=== PATIENT | male | born 1970 | race Asian ===

== ENCOUNTER 2016-11-15 10:31 | Emergency (ER) | payer OTHER ==
--- NOTE | 2016-11-15 11:02 | EDPHY ---
H & P Stated Complaint: Fever, "not feeling well", kidney transplant 12 weeks ago. Time Seen by Provider: 11/15/16 10:31 HPI/ROS: CHIEF COMPLAINT: fever, diarrhea, recent kidney transplant HISTORY OF PRESENT ILLNESS: 46-year-old male who recently had a right kidney transplant at [facility] 4 months ago presents to the emergency department by EMS complaining of a 2 day history of subjective fevers, weakness and diarrhea that started yesterday. Patient denies recent cough or cold, he denies abdominal pain at this time though reports last night he had sharp diffuse abdominal pain for about an hour with rigors, no nausea or vomiting. He denies chest pain. He does report shortness of breath on exertion. Patient reports burning with urination over the last 2 days. Patient reports 4 episodes of diarrhea yesterday and 4 today. Reports that is liquid yellow, denies blood in his urine or stool. REVIEW OF SYSTEMS: A comprehensive 10 point review of systems is otherwise negative aside from elements mentioned in the history of present illness. Source: Patient, RN/MD, EMS Exam Limitations: Language barrier - Medical/Surgical History Hx Diabetes: No Other PMH: kidney transplant 12 weeks ago. - Social History Smoking Status: Former smoker - Physical Exam Exam: Physical Exam Gen: Alert and Oriented, pale HEENT: PERRL, dry mucous membranes NECK: no meningismus CV: Tachycardic rate and regular rhythm PULM: CTAB, no wheezes ABDOMEN: soft, non tender to palpation, BS present BACK: No CVA tenderness NEURO: Neurologically grossly intact EXTREMITIES: normal appearing SKIN: no rash or break in skin on exposed skin, renal transplant surgical incision healed with no surrounding erythema PSYCH: answers questions appropriately. Constitutional: Initial Vital Signs Temperature (C) 36.9 C 11/15/16 10:33 Heart Rate 114 H 11/15/16 10:33 Respiratory Rate 20 11/15/16 10:33 Blood Pressure 83/53 L 11/15/16 10:33 O2 Sat (%) 95 11/15/16 10:33 O2 Delivery Mode Nasal Cannula O2 (L/minute) 3 Allergies/Adverse Reactions: No Known Allergies Allergy (Unverified 08/22/09 12:54) Medical Decision Making - Diagnostics EKG Interpretation: EKG shows sinus tachycardia, rate 97, normal axis, good R-wave progression, left ventricular hypertrophy. 3pm-EKG shows sinus tachycardia rate 145 Imaging: Chest x-ray independently reviewed by me- Impression: 1. Clear lungs. No pneumonia. 2. Resolved pericardial effusion since January 2016. Dictated By: Ventura Sanchez MD CT abdomen pelvis- Impression: 1. Bladder wall thickening and prominent right iliac fossa renal transplant with nonspecific perinephric stranding, suspicious for cystitis/pyelonephritis given the patient' s reported history of urosepsis. No perinephric abscess. 2. Multiple indeterminate soft tissue density masses in the kidneys, most likely related to hemorrhagic/proteinaceous cysts, but incompletely characterized on this unenhanced CT. If these have not been previously evaluated, ultrasound may be useful for further assessment. 3. Probable mild ileus. 4. Trace pleural effusions. 5. 1.6 cm pancreatic cyst. Follow up is recommended in one year per the [employer]. 6. Additional findings as above. Attention: This CT examination is specifically designed to evaluate patients who are clinically suspected of having acute obstructive uropathy. This examination does not use radiographic contrast , and as such, provides only a limited evaluation of the abdomen, pelvis and retroperitoneum. If there is further clinical suspicion for pathological conditions other than obstructive uropathy, a complete CT evaluation of the abdomen and pelvis utilizing intravenous, oral, and rectal contrast should be considered. Findings discussed with Henny Mcrae NP on 11/15/2016 at 1531 hours. Dictated By: Robin Durbin MD ED Course/Re-evaluation: 1130- Creat 5.7. Severe sepsis identified with hypotension, tachycardia[place] [address] and a creatinine of 5.7. Lactate 2.3. I have ordered 2 L normal saline. 1230-patients blood pressure improving, 103/67, heart rate is down to 103. Influenza is negative. 1330- I spoken with Dr. Leong at [facility] for transfer of this patient for urosepsis. The patient has been given cefepime, Dr. Leong is requesting 1 g of vancomycin as well. They are looking for a bed and will call back. 250pm patient has developed acute onset abdominal pain, and is tachycardic to 160. He is given 0.5 mg of Dilaudid IV. CT abdomen pelvis without contrast has been ordered, my supervising physician Dr. Santos has evaluated patient and agrees with this plan. EKG shows a sinus tachycardia. Repeat lactate 2.0 310pm-after IV pain medication the patient's heart rate is now 130, he has a temperature of 37.9degrees. He is given 650 mg of Tylenol p.o. I have spoken with Dr. Vernon with Hospital Medicine at [facility]. She accepts this patient. We will arrange for ground transport ground to [facility]. 330pm-report called by Dr. Durbin for CT abdomen pelvis showing perinephric stranding consistent with a pyelonephritis. There is an incidental finding of a 1.6 cm pancreatic cyst that he is recommending follow-up in 1 year. 4pm-[facility] here to transport patient to [facility]. - Data Points Laboratory Results: Laboratory Results 11/15/16 11:00 11/15/16 11:00 11/15/16 11/15/16 11/15/16 13:25 12:37 12:30 WBC RBC Hgb Hct MCV MCH MCHC RDW Plt Count MPV Neut % (Auto) Lymph % (Auto) [place] % (Auto) Eos % (Auto) Baso % (Auto) Nucleat RBC Rel Count Absolute Neuts (auto) Absolute Lymphs (auto) Absolute Monos (auto) Absolute Eos (auto) Absolute Basos (auto) Absolute Nucleated RBC Immature Gran % Immature Gran # VBG Lactic Acid 2.0 mmol/L (0.7-2.1) Sodium Potassium Chloride Carbon Dioxide Anion Gap BUN Creatinine Estimated GFR Glucose Calcium Total Bilirubin AST ALT Alkaline Phosphatase Total Protein Albumin Lipase Urine Color KRISS Urine Appearance MODERATELY TURBID Urine pH 5.0 (5.0-7.5) Ur Specific [place] 1.016 (1.002-1.030) Urine Protein 2+ H (NEGATIVE) Urine Ketones NEGATIVE (NEGATIVE) Urine Blood NEGATIVE (NEGATIVE) Urine Nitrate NEGATIVE (NEGATIVE) Urine Bilirubin NEGATIVE (NEGATIVE) Urine Urobilinogen NEGATIVE EU (0.2-1.0) Ur Leukocyte Esterase 3+ H (NEGATIVE) Urine RBC Not Reported Urine WBC 50-182 H /hpf (0-3) Ur Epithelial Cells TRACE /lpf (NONE-1+) Urine Bacteria 4+ H /hpf (NONE SEEN) Hyaline Casts 1-5 /lpf (0-1) Urine Mucus TRACE /lpf (NONE-1+) Ur Culture Indicated? INDICATED H (NI) Urine Glucose NEGATIVE (NEGATIVE) C. difficile Tox (PCR) POSITIVE H (NEGATIVE) Influenza Typ A,B (DFA) NEGATIVE FOR FLU (NEGATIVE) 11/15/16 11:00 WBC 15.75 H 10^3/uL (3.80-9.50) RBC 2.76 L 10^6/uL (4.40-6.38) Hgb 8.8 L g/dL (13.7-17.5) Hct 27.0 L % (40.0-51.0) MCV 97.8 fL (81.5-99.8) MCH 31.9 pg (27.9-34.1) MCHC 32.6 g/dL (32.4-36.7) RDW 14.0 % (11.5-15.2) Plt Count 167 10^3/uL (150-400) MPV 11.0 fL (8.7-11.7) Neut % (Auto) 93.9 H % (39.3-74.2) Lymph % (Auto) 1.4 L % (15.0-45.0) [place] % (Auto) 3.0 L % (4.5-13.0) Eos % (Auto) 0.0 L % (0.6-7.6) Baso % (Auto) 0.1 L % (0.3-1.7) Nucleat RBC Rel Count 0.0 % (0.0-0.2) Absolute Neuts (auto) 14.79 H 10^3/uL (1.70-6.50) Absolute Lymphs (auto) 0.22 L 10^3/uL (1.00-3.00) Absolute Monos (auto) 0.47 10^3/uL (0.30-0.80) Absolute Eos (auto) 0.00 L 10^3/uL (0.03-0.40) Absolute Basos (auto) 0.02 10^3/uL (0.02-0.10) Absolute Nucleated RBC 0.00 10^3/uL (0-0.01) Immature Gran % 1.6 H % (0.0-1.1) Immature Gran # 0.25 H 10^3/uL (0.00-0.10) VBG Lactic Acid 2.3 H mmol/L (0.7-2.1) Sodium 134 mEq/L (134-144) Potassium 4.7 mEq/L (3.5-5.2) Chloride 103 mEq/L (97-110) Carbon Dioxide 19 L mEq/l (22-31) Anion Gap 12 mEq/L (8-16) BUN 71 H mg/dL (7-23) Creatinine 5.7 H mg/dL (0.7-1.3) Estimated GFR 11 Glucose 146 H mg/dL (70-100) Calcium 8.6 mg/dL (8.5-10.4) Total Bilirubin 1.6 H mg/dL (0.1-1.4) AST 28 IU/L (17-59) ALT 39 IU/L (21-72) Alkaline Phosphatase 56 IU/L (38-126) Total Protein 6.0 L g/dL (6.3-8.2) Albumin 3.5 g/dL (3.5-5.0) Lipase 48.0 IU/L (23-300) Urine Color Urine Appearance Urine pH Ur Specific [place] Urine Protein Urine Ketones Urine Blood Urine Nitrate Urine Bilirubin Urine Urobilinogen Ur Leukocyte Esterase Urine RBC Urine WBC Ur Epithelial Cells Urine Bacteria Hyaline Casts Urine Mucus Ur Culture Indicated? Urine Glucose C. difficile Tox (PCR) Influenza Typ A,B (DFA) Medications Given: Discontinued Medications Acetaminophen (Tylenol 160mg/5ml Oral Liquid) 650 mg PO EDNOW ONE Stop: 11/15/16 15:21 Last Admin: 11/15/16 15:20 Dose: 650 mg Hydromorphone HCl (Dilaudid) 0.5 mg IVP EDNOW ONE Stop: 11/15/16 14:21 Last Admin: 11/15/16 14:20 Dose: 0.5 mg Sodium Chloride (Ns) 1,000 mls @ 0 mls/hr IV ONCE ONE PRN Reason: Wide Open Stop: 11/15/16 11:19 Last Admin: 11/15/16 11:33 Dose: 1,000 mls Sodium Chloride (Ns) 1,000 mls @ 0 mls/hr IV ONCE ONE PRN Reason: Wide Open Stop: 11/15/16 11:21 Last Admin: 11/15/16 11:36 Dose: 1,000 mls Cefepime HCl 1 gm/ Dextrose 50 mls @ 100 mls/hr IV EDNOW ONE PRN Reason: Protocol Stop: 11/15/16 11:59 Last Admin: 11/15/16 15:33 Dose: Not Given Cefepime HCl 1 gm/ Dextrose 50 mls @ 100 mls/hr IV EDNOW ONE PRN Reason: Protocol Stop: 11/15/16 12:01 Last Admin: 11/15/16 13:25 Dose: 50 mls Vancomycin/Sodium Chloride (Vancomycin 1 Gm (Premix)) 250 mls @ 250 mls/hr IV EDNOW ONE PRN Reason: Protocol Stop: 11/15/16 14:30 Last Admin: 11/15/16 14:10 Dose: 250 mls Sodium Chloride (Ns) 1,000 mls @ 0 mls/hr IV ONCE ONE PRN Reason: Wide Open Stop: 11/15/16 14:16 Last Admin: 11/15/16 14:15 Dose: 1,000 mls Sodium Chloride (Ns) 1,000 mls @ 0 mls/hr IV ONCE ONE PRN Reason: Wide Open Stop: 11/15/16 15:36 Last Admin: 11/15/16 15:54 Dose: 1,000 mls Departure - Departure Disposition: Acute Care Hospital Not [facility] Clinical Impression: Sepsis secondary to UTI, Acute kidney injury, C. difficile diarrhea Condition: Fair Referrals: [place] STATE,. [Primary Care Provider] - As per Instructions
[2016-11-15] MEDS ORDERED: NS 1,000 ML IV ONE ×4 (11:18→15:35)
[2016-11-15] MEDS ORDERED: CEFEPIME HCL 1 GM in D5W 50 ML IV ONE ×2 (11:30→11:32)
[2016-11-15 11:33] LABS: % IMMATURE GRANULYOCYTES 1.6 % (0.0-1.1); ABSOLUTE IMMATURE GRANULOCYTES 0.25 10^3/uL (0.00-0.10); ADD DIFF? NO; ADD MORPH? NO; ADD SCAN? NO; ATYPICAL LYMPHOCYTE FLAG 0 (0-99); FRAGMENT RBC FLAG 20 (0-99); HEMOGLOBIN 8.8 g/dL (13.7-17.5); LEFT SHIFT FLG 80 (0-99); LIPEMIA HEMOLYSIS FLAG 80 (0-99); MEAN CELL HEMOGLOBIN 31.9 pg (27.9-34.1); MEAN CELL HEMOGLOBIN CONCENTR. 32.6 g/dL (32.4-36.7); MEAN CELL VOLUME 97.8 fL (81.5-99.8); PLATELET CLUMPS FLAG 10 (0-99); PLATELET COUNT 167 10^3/uL (150-400); RED BLOOD CELL COUNT 2.76 10^6/uL (4.40-6.38)
--- NOTE | 2016-11-15 11:38 | DX ---
PA and Lateral Chest Indication: Pain. Fever. Comparison: January 18, 2016 Findings: The lungs are well aerated and clear. No airspace consolidation, edema, or effusion. The he art size is normal. No cardiomegaly, edema or effusion. The descending thoracic aorta is minimally to rtuous. Impression: 1. Clear lungs. No pneumonia. 2. Resolved pericardial effusion since January 2016.
--- NOTE | 2016-11-15 11:55 | CPEKG ---
Heart Rate: 97 RR Interval: 619 P-R Interval: 172 QRSD Interval: 98 QT Interval: 364 QTC Interval: 463 P [place]: 39 QRS [place]: 69 T Wave [place]: 39 EKG Severity - ABNORMAL ECG - EKG Impression: SINUS RHYTHM EKG Impression: LEFT VENTRICULAR HYPERTROPHY Electronically Signed By: Sapphire Burger 17-Nov-2016 16:28:22
[2016-11-15 11:56] LABS: ALANINE AMINOTRANSFERASE 39 IU/L (21-72); ALBUMIN 3.5 g/dL (3.5-5.0); ALKALINE PHOSPHATASE 56 IU/L (38-126); ANION GAP 12 mEq/L (8-16); ASPARTATE AMINOTRANSFERASE 28 IU/L (17-59); BILIRUBIN,TOTAL 1.6 mg/dL (0.1-1.4); CALCIUM 8.6 mg/dL (8.5-10.4); CARBON DIOXIDE 19 mEq/l (22-31); CHLORIDE 103 mEq/L (97-110); CREATININE 5.7 mg/dL (0.7-1.3); GLOMERULAR FILTRATION RATE 11; GLUCOSE 146 mg/dL (70-100); POTASSIUM 4.7 mEq/L (3.5-5.2); SODIUM 134 mEq/L (134-144)
[2016-11-15 12:47] LABS: COLOR AMBER; LEUKOCYTE ESTERASE,URINE 3+ (NEGATIVE); NITRITE,URINE NEGATIVE (NEGATIVE)
[2016-11-15 13:06] LABS: BACTERIA 4+ /hpf (NONE SEEN); MUCUS TRACE /lpf (NONE-1+); WBC,URINE 50-182 /hpf (0-3)
[2016-11-15] MEDS ORDERED: VANCOMYCIN HCL/NORMAL SALINE 250 ML IV ONE (13:31)
[2016-11-15] MEDS ORDERED: HYDROmorphONE/DILAUDID 1 MG/ML SYR IVP ONE (14:20)
[2016-11-15] MEDS ORDERED: HYDROmorphONE/DILAUDID 1 MG/ML SYR ONE (14:23)
--- NOTE | 2016-11-15 14:33 | CPEKG ---
Heart Rate: 145 RR Interval: 414 P-R Interval: 136 QRSD Interval: 92 QT Interval: 268 QTC Interval: 417 P [place]: 50 QRS [place]: 70 T Wave [place]: -10 EKG Severity - ABNORMAL ECG - EKG Impression: SINUS TACHYCARDIA EKG Impression: LEFT ATRIAL ABNORMALITY EKG Impression: BORDERLINE REPOL ABNORMALITY, INF-LAT LEADS Electronically Signed By: Sapphire Burger 17-Nov-2016 16:28:22
[2016-11-15] MEDS ORDERED: ACETAMINOPHEN 325 MG TAB ONE (15:16)
[2016-11-15] MEDS ORDERED: ACETAMINOPHEN 160 MG/5 ML UDCUP PO ONE (15:20)
--- NOTE | 2016-11-15 15:44 | CT ---
CT Abdomen and Pelvis Unenhanced (Renal Stone Protocol) Indication: Reported history of urosepsis. Fever, diarrhea, weakness, right renal transplant 12 weeks ago, flank pain. Comparison: CT angiogram of the abdomen and pelvis May 10, 2016. Technique: Axial unenhanced CT imaging was performed through the abdomen and pelvis without contrast. Dose reduction techniques were utilized. Findings Abdomen: There are tiny bilateral effusions. Mild cardiomegaly is present with trace pericardial flui d. A 1.3 cm central left hepatic cyst is noted. The gallbladder is mildly distended. There is a 1.6 x 1. 0 cm cyst at the posterior aspect of the pancreatic body (series 3, image 90). The spleen has a amy l unenhanced appearance. The kidneys are atrophic with innumerable cysts. Some circumscribed structur es in the kidneys bilaterally are soft tissue density, possibly representing hemorrhagic or proteinac eous cysts, but indeterminate. Multiple hypodensities are too small to characterize. There is no obst ructive uropathy. There is a transplant kidney in the right iliac fossa with nonspecific perinephric stranding without hydronephrosis. No renal or ureteral stones are identified. There is mild distention of jejunum in the left upper quadrant, measuring up to 3.5 cm, without evide nce of obstruction. The colon has normal caliber. The appendix is normal. There is no free air. Mild atherosclerosis is present in a normal caliber aorta. No aggressive osseous lesions are present. Pelvis: As above, there is a mildly prominent right iliac fossa renal transplant measuring 11.8 x 6.1 x 7.5 cm, with nonspecific perinephric stranding. No focal fluid collection is identified. No renal or ureteral stones are present. There is trace ascites. The bladder is poorly distended, with mild bl adder wall thickening possibly related to underdistention. No aggressive osseous lesions are present. Impression: 1. Bladder wall thickening and prominent right iliac fossa renal transplant with nonspecific perineph kaelyn stranding, suspicious for cystitis/pyelonephritis given the patient's reported history of uroseps is. No perinephric abscess. 2. Multiple indeterminate soft tissue density masses in the kidneys, most likely related to hemorrhag ic/proteinaceous cysts, but incompletely characterized on this unenhanced CT. If these have not been previously evaluated, ultrasound may be useful for further assessment. 3. Probable mild ileus. 4. Trace pleural effusions. 5. 1.6 cm pancreatic cyst. Follow up is recommended in one year per the [employer] . 6. Additional findings as above. Attention: This CT examination is specifically designed to evaluate patients who are clinically susp ected of having acute obstructive uropathy. This examination does not use radiographic contrast, and as such, provides only a limited evaluation of the abdomen, pelvis and retroperitoneum. If there i s further clinical suspicion for pathological conditions other than obstructive uropathy, a complete CT evaluation of the abdomen and pelvis utilizing intravenous, oral, and rectal contrast should be co nsidered. Findings discussed with Henny Mcrae NP on 11/15/2016 at 1531 hours.
[2016-11-15 16:12] VITALS: BP 102/55; PULSE 120; RESP 20; TEMP 99; O2SAT 93
--- NOTE | 2016-11-15 23:21 | EDPHY ---
[id number] culture E coli. This patient has been transferred to [facility] already and these results have been conveyed by the [facility] nursing staff to the nursing staff at [facility] where he was transferred. (Candace Uribe) PHYSICIAN DOCUMENTATION: The patient was evaluated and managed by the Physician Mud Analysis Well Logging Operator. My co- signature indicates that I have reviewed this chart and I agree with the findings and plan of care as documented. I am the secondary supervising physician. (Anisha Lincoln)
== END 2016-11-15 16:12 | disposition short-term general hospital (02) ==
LOC: EDUNIT#
DX: A41.51 Sepsis due to Escherichia coli [E. coli] (principal); N17.9 Acute kidney failure, unspecified; R65.20 Severe sepsis without septic shock; A04.7 Enterocolitis due to Clostridium difficile; N39.0 Urinary tract infection, site not specified; Z87.891 Personal history of nicotine dependence
CPT/HCPCS: 71020; 74176; 93005; 96361; 96365; 96367; 96375; 99285; J0692; J1170; J3370

== ENCOUNTER 2018-01-16 06:51 | Day surgery (SDC) | payer OTHER, MEDICAID ==
--- NOTE | 2018-01-15 08:18 | GHP ---
[f rep st] HISTORY AND PHYSICAL DATE OF ADMISSION: 01/16/2018 HISTORY OF PRESENT ILLNESS: Lulú is a 47-year-old male who is status post kidney transplant. He presented to our office for banding of his left upper extremity AV fistula. He states his kidney transplant took place in August of 2016. Although he has done well after kidney transplantation, he has had a complication of BK viremia. In order to treat the BK viremia, his immunosuppression was tapered, and his BK titers were decreased. Due to the complication, it is unclear whether his kidney transplant will be viable in the long run. Therefore, his transplant concrete block mason would like to keep his AV fistula intact in the event that he needs to go back on hemodialysis. Lulú reports that he feels well overall. He exercises and his energy level is much better than when he was on dialysis. His blood pressure is well controlled. He denies ankle edema, and denies fever and chills. His current creatinine is 1.77, and his EGFR is 50. His AV fistula has not been accessed for dialysis since 2015. He reports that his concrete block mason wanted him to have his AV fistula evaluated for distal dilation of the venous tributaries adjacent to the AV fistula, which has lead to some degree of heart failure. He has no overall complaints, other than occasional numbness when he flexes his arm while he is sleeping. Otherwise feels well. MEDICATIONS: Amlodipine besylate 5 mg one tablet daily. Nadolol HCl 300 mg one tablet three times per day. Mycophenolate sodium 180 mg 1 capsule twice daily, prednisone 5 mg 1 tablet once a day, sodium bicarbonate 650 mg tablet two tablets orally twice per day. Vitamin D 2000 units 1 per day. Tacrolimus 0.5 mg once at night. Prograf 1 mg twice per day. PAST MEDICAL HISTORY: Includes end-stage renal disease secondary to unknown causes, kidney transplant in 2016, BK viremia, hypertension, hyperpotassemia, secondary hyperparathyroidism. Latent pulmonary tuberculosis, age 13, was treated in [place]. Psoriasis, and pulmonary hypertension. PAST SURGICAL HISTORY: Left upper extremity fistula, benign anterior neck tumor removed at age 11, and kidney transplant in 2016. FAMILY HISTORY: Noncontributory. SOCIAL HISTORY: The patient is a former smoker, quit smoking in 2009. Does not use recreational drugs or alcohol. PHYSICAL EXAM: GENERAL: Patient is a 47-year-old male, well appearing, in no acute distress. HEENT: Head is normocephalic. Eyes anicteric, and pupils are equal and reactive to light and accommodation. CARDIAC: Regular rate and rhythm, with a murmur. CHEST: Clear to auscultation bilaterally. ABDOMEN: Soft, nontender. EXTREMITIES: Left upper extremity with good thrill, with distal dilation. SKIN: Warm and dry, without rashes. PSYCHIATRIC: The patient is alert and oriented. Mood and affect are appropriate. NEUROLOGIC: Cranial nerves 2-12 are grossly intact. IMPRESSION AND PLAN: Lulú is a 47-year-old male, status post kidney transplant in 2016. However, given the complication of his BK viremia, it is unclear whether his transplant will be viable. Therefore, his transplant concrete block mason would like his AV fistula to remain intact. Due to the dilation of his AV fistula, which is leading to some degree of heart failure, the plan is for Lulú to undergo revision of his left upper extremity AV fistula with banding. /[id number]/MODL MTDD
[2018-01-16] MEDS ORDERED: ceFAZolin 2 GM/SWFI 2 GM/20 ML SYR IVP ONE (07:09)
[2018-01-16] MEDS ORDERED: LR 1,000 ML IV ONE (07:09)
[2018-01-16] MEDS ORDERED: THROMBIN (BOVINE) 20,000 UNIT VIAL TP ONE (07:39)
[2018-01-16] MEDS ORDERED: PAPAVERINE HCL 60 MG/2 ML SDV ONE (07:40)
[2018-01-16] MEDS ORDERED: THROMBIN (BOVINE) 5,000 UNIT VIAL TP ONE (07:40)
[2018-01-16] MEDS ORDERED: PROTAMINE SULFATE 50 MG/5 ML VIAL IVP ONE (07:40)
[2018-01-16] MEDS ORDERED: BUPIVACAINE 0.5% 30 ML SDV ONE (07:40)
--- NOTE | 2018-01-16 07:41 | PDHPUP ---
History & Physical Update H&P update statement: This history and physical update is based on an assessment of the patient which was completed after admission or registration (within 24 hours), but prior to the surgery/procedure. H&P update: H&P reviewed & patient examined, no change in patient's condition since H&P completed
[2018-01-16] MEDS ORDERED: MIDAZOLAM 2 MG/2 ML VIAL ONE (08:16)
[2018-01-16] MEDS ORDERED: fentaNYL 100 MCG/2 ML INJ ONE ×2 (08:21→08:57)
[2018-01-16] MEDS ORDERED: PROPOFOL/EMULSION 500 MG/50 ML BOTTLE IV ONE (08:21)
[2018-01-16] MEDS ORDERED: ONDANSETRON 4 MG/2 ML VIAL ONE (08:27)
[2018-01-16] MEDS ORDERED: DEXAMETHASONE 4 MG/ML VIAL ONE (08:27)
[2018-01-16] MEDS ORDERED: MIDAZOLAM 2 MG/2 ML VIAL IVP ONE (08:52)
--- NOTE | 2018-01-16 08:54 | PDANEPAE ---
ANE History of Present Illness AV fistula banding ANE Past Medical History - Cardiovascular History Hx Hypertension: Yes Hx Arrhythmias: No Hx Chest Pain: No Hx Coronary Artery / Peripheral Vascular Disease: No Hx CHF / Valvular Disease: No Hx Palpitations: No Cardiovascular History Comment: Pt states irregular HR when K+ too high right before dialysis. Has not seen Dr for this. States enlarged heart due to hypertension. - Pulmonary History Hx COPD: No Hx Asthma/Reactive Airway Disease: No Hx Recent Upper Respiratory Infection: No Hx Oxygen in Use at Home: No Hx Sleep Apnea: Yes Sleep Apnea Screening Result - Last Documented: Positive Pulmonary History Comment: RADHA -not using CPAP now. - Neurologic History Hx Cerebrovascular Accident: No Hx Seizures: Yes Hx Dementia: No Neurologic History Comment: 2008 x1 first time dialyzed. - Endocrine History Hx Diabetes: No - Renal History Hx Renal Disorders: Yes Renal History Comment: nocturia 2-3x/nite after transplant - Liver History Hx Hepatic Disorders: No - Neurological & Psychiatric Hx Hx Neurological and Psychiatric Disorders: Yes Neurological / Psychiatric History Comment: low back pain. - Cancer History Hx Cancer: No - Congenital Disorder History Hx Congenital Disorders: No - GI History Hx Gastrointestinal Disorders: No Gastrointestinal History Comment: Occ. heartburn. - Other Health History Other Health History: " small amount of BK virus in blood"-common for pts on immune suppresants. Psoriasis. - Chronic Pain History Chronic Pain: No - Surgical History Prior Surgeries: renal transplant [id number]-Dialysis fistula & revision. benign tumor neck age 11 ANE Review of Systems Review of Systems: - Exercise capacity METS (RN): 4 METS ANE Patient History - Allergies Allergies/Adverse Reactions: No Known Allergies Allergy (Verified 01/16/18 07:37) - Home Medications Home medications: home medication list seen and reviewed Home Medications: Amlodipine Besylate 01/13/18 [Last Taken 01/15/18] Labetalol HCl 01/13/18 [Last Taken 01/16/18 06:00] Mycophenolate Sodium 01/13/18 [Last Taken 01/15/18] Pravastatin Sodium 01/13/18 [Last Taken 01/15/18] Prednisone 01/13/18 [Last Taken 01/15/18] Prograf 01/13/18 [Last Taken 01/15/18] Sodium Bicarbonate 01/13/18 [Last Taken 01/15/18] Tacrolimus 01/13/18 [Last Taken 01/15/18] - NPO status NPO Since - Liquids (Date): 01/16/18 NPO Since - Liquids (Time): 06:00 NPO Since - Solids (Date): 01/15/18 NPO Since - Solids (Time): 19:00 - Anes Hx Anes Hx: no prior problems - Smoking Hx Smoking Status: Former smoker - Alcohol Use Alcohol Use: None - Family Anes Hx Family Anes Hx: none Family Hx Anesthesia Complications: no ANE Labs/Vital Signs - Labs Result Diagrams: 01/16/18 07:20 - Vital Signs Blood Pressure: 155/97 Heart Rate: 83 Respiratory Rate: 16 O2 Sat (%): 94 Height: 175 cm Weight: 72.393 kg ANE Physical Exam - Airway Neck exam: FROM Mallampati Score: Class 2 Mouth exam: poor dentition - Pulmonary Pulmonary: no respiratory distress - Cardiovascular Cardiovascular: regular rate and rhythym - ASA Status ASA Status: III ANE Anesthesia Plan Anesthesia Plan: GA w LMA Urgent/Emergent Case: Shazia mckeon completed preop but documented later for safe timely pt care
[2018-01-16] MEDS ORDERED: LIDOCAINE 2% 5 ML SDV ONE (08:58)
[2018-01-16] MEDS ORDERED: ACETAMINOPHEN 500 MG TAB PO PRN (09:36)
[2018-01-16] MEDS ORDERED: HYDROCODONE/APAP 5/325 TAB PO PRN (09:36)
[2018-01-16] MEDS ORDERED: ALBUTEROL 3 ML DEYVIAL IH PRN (09:36)
[2018-01-16] MEDS ORDERED: fentaNYL 100 MCG/2 ML INJ IVP PRN (09:36)
[2018-01-16] MEDS ORDERED: epHEDrine SULFATE 10 MG/ML SYR IVP PRN (09:36)
[2018-01-16] MEDS ORDERED: ONDANSETRON 4 MG/2 ML VIAL IVP PRN (09:36)
[2018-01-16] MEDS ORDERED: LR 500 ML IV PRN (09:36)
[2018-01-16] MEDS ORDERED: oxyCODONE IR 5 MG TAB PO PRN (09:36)
[2018-01-16] MEDS ORDERED: PROMETHAZINE HCL 25 MG/ML INJ IVP PRN (09:36)
[2018-01-16] MEDS ORDERED: METOCLOPRAMIDE 10 MG/2 ML VIAL IVP PRN (09:36)
[2018-01-16] MEDS ORDERED: DEXAMETHASONE 4 MG/ML VIAL IVP PRN (09:36)
[2018-01-16] MEDS ORDERED: PHENYLEPHRINE HCL 100 MCG/ML SYR IVP PRN (09:36)
[2018-01-16] MEDS ORDERED: MEPERIDINE 25 MG/ML SYR IVP PRN (09:36)
[2018-01-16] MEDS ORDERED: LABETALOL HCL 5 MG/ML 20 ML MDV IVP PRN (09:36)
[2018-01-16] MEDS ORDERED: NALOXONE HCL 0.4 MG/ML INJ IVP PRN (09:36)
[2018-01-16] MEDS ORDERED: HYDROmorphONE/DILAUDID 1 MG/ML INJ IVP PRN (09:36)
--- NOTE | 2018-01-16 09:52 | POSTOPPROG ---
Post Op Note Date of Operation: 01/16/18 Surgeon: Jah Chappell Component Prep Operator: Juan Anesthesiologist: Haseeb Anesthesia: GET(General Endotracheal) Pre-op Diagnosis: LUE AVF dilation with heart failure Post-op Diagnosis: same Indication: heart failure Procedure: LUE AVF banding Inf/Abcess present in the surg proc area at time of surgery?: No Depth: Superfical (Skin SQ) EBL: Minimal
--- NOTE | 2018-01-16 11:10 | POSTANESTH ---
Post Anesthetic Evaluation Cardiovascular Status: Normal, Stable Respiratory Status: Normal, Stable Level of Consciousness/Mental Status: Can Participate in Eval Pain Control: Adequate, Prn Tx Ordered Nausea/Vomiting Control: Adequate, Prn Tx Ordered Complications Possibly Related to Anesthesia: None Noted
[2018-01-16 11:14] VITALS: BP 136/90
== END 2018-01-16 11:10 | disposition home or self-care (01) ==
LOC: FSGY 06:51
PROVIDERS: ATTEND Surgery
PROC: 05WY0KZ Revision of Nonautologous Tissue Substitute in Upper Vein, Open Approach (ICD-10-PCS; principal; 2018-01-16 08:15)
PROC: 03WY0KZ Revision of Nonautologous Tissue Substitute in Upper Artery, Open Approach (ICD-10-PCS; principal; 2018-01-16 08:15)
DX: N18.6 End stage renal disease (principal); Z94.0 Kidney transplant status; I13.2 Hypertensive heart and chronic kidney disease with heart failure and with stage 5 chronic kidney disease, or end stage renal disease; I50.9 Heart failure, unspecified; G47.33 Obstructive sleep apnea (adult) (pediatric); E87.5 Hyperkalemia; E21.3 Hyperparathyroidism, unspecified; Z87.891 Personal history of nicotine dependence
CPT/HCPCS: J0690; J1100; J1644; J2250; J2405; J2440; J2704; J2720; J3010

== ENCOUNTER → 2019-02-15 | Outpatient (CLI) | payer OTHER, MEDICAID | LOC: FIMAGING 14:19 | PROVIDERS: ATTEND Internal Medicine Nephrology | DX: Z13.820 Encounter for screening for osteoporosis (principal); M81.0 Age-related osteoporosis without current pathological fracture ==